=== PATIENT | female | born 1980 | race Caucasian/White ===

== ENCOUNTER → 2017-05-12 | Outpatient (CLI) | payer OTHER ==
--- NOTE | 2017-05-12 17:39 | CT ---
EXAM: CT Abdomen and Pelvis With Intravenous Contrast CLINICAL HISTORY: Reason: R10.31 Right lower quadrant pain TECHNIQUE: Axial computed tomography images of the abdomen and pelvis with intravenous contrast. CTDI is 9.76 mGy and DLP is 914.8 mGy-cm This CT exam was performed using one or more of the following dose reduction techniques: automated exposure control, adjustment of the mA and/or kV according to patient size, and/or use of iterative reconstruction technique. COMPARISON: No relevant prior studies available. FINDINGS: Lung bases are clear. Mild hepatomegaly and parenchymal steatosis. The biliary tree, pancreas, spleen, kidneys, and adrenal glands are within normal limits. There is no bowel obstruction or perforation. The appendix is unremarkable. 1.7 cm right ovarian cyst is likely functional as is trace fluid in the pelvic cul-de-sac. Small fatty umbilical hernia. No acute fracture. IMPRESSION: No acute process to explain symptoms. Normal appendix. No GI or urinary tract obstruction.
== END | disposition home or self-care (01) ==
LOC: RADCTMAIN 15:24
PROVIDERS: ATTEND Family Medicine
DX: R10.31 Right lower quadrant pain (principal)
CPT/HCPCS: 74177; Q9967

== ENCOUNTER 2023-06-04 06:10 | Day surgery (SDC) | payer OTHER ==
[~2023-06-04 06:10] MED LIST: Pre Op ABX Message 1 EACH MISC MISCELLANE ONE
[2023-06-04] MEDS ORDERED: DEXAMETHASONE SOD PHOSPHATE 4 MG/ML 1 ML VIAL IV ONE (06:45)
[2023-06-04] MEDS ORDERED: SCOPOLAMINE 1 MG/72 HR PATCH TRANSDERM ONE (06:45)
[2023-06-04] MEDS ORDERED: ONDANSETRON 4 MG/2 ML VIAL IVP ONE ×2 (06:45→09:55)
[2023-06-04] MEDS ORDERED: LACTATED RINGERS 1,000 ML IV SCH (06:45)
[2023-06-04] MEDS ORDERED: MIDAZOLAM 2 MG/2 ML VIAL IV PRN (07:00)
[2023-06-04] MEDS ORDERED: HYDROmorphone 0.5 MG/0.5 ML SYRINGE IVP PRN (07:00)
[2023-06-04] MEDS ORDERED: FAMOTIDINE 20 MG/2 ML VIAL IVP ONE (07:12)
[2023-06-04] MEDS ORDERED: MIDAZOLAM 2 MG/2 ML VIAL ONE (07:30)
[2023-06-04] MEDS ORDERED: KETOROLAC 15 MG/ML 1 ML VIAL ONE (07:30)
[2023-06-04] MEDS ORDERED: LIDOCAINE 2% INJ 20 MG/ML (2 ML VIAL) ONE (07:30)
[2023-06-04] MEDS ORDERED: fentaNYL (PF) 50 MCG/ML 2 ML AMP ONE (07:30)
[2023-06-04] MEDS ORDERED: PROPOFOL 10 MG/ML 20 ML VIAL IV ONE (07:30)
--- NOTE | 2023-06-04 08:12 | P.OP ---
Date of Procedure: 06/04/23 Preoperative Diagnosis: Dysfunctional uterine bleeding Possible endocervical polyp by ultrasound Postoperative Diagnosis: Dysfunctional uterine bleeding Possible endometrial polyps Procedure(s) Performed: Diagnostic hysteroscopy and dilation and curettage Anesthesia: MAC Surgeon: Blanquita Todd Estimated Blood Loss (ml): 25 IV fluids (ml): 350 Urine output (ml): 25 Pathology: other (Endometrial curettings) Condition: stable Disposition: PACU Indications for Procedure: Dysfunctional uterine bleeding and findings on ultrasound consistent with possible endocervical polyp Operative Findings: On hysteroscopy there was a significant amount of fluffy and polypoid appearing endometrium with no distinct individual endocervical or endometrial polyp appreciated. The bilateral tubal ostia were obscured by blood and tissue. Description of Procedure: After the patient was met in the preoperative holding area and all questions were answered, she was taken the operating room where appropriate timeout procedure was undertaken. Urine hCG was negative. On anesthetic was administered without incident and she was positioned, prepped and draped in the dorsal high lithotomy position. Exam under anesthetic was undertaken. The bladder was drained for 25 mL of clear urine. Weighted speculum was placed in the vagina. The cervix appeared patulous and RT dilated approximately 1 cm. Tenaculum was placed on the anterior lip of the cervix and the uterus was sounded to 8 cm. Dilation was not required to introduce the diagnostic hysteroscope. The hysteroscope revealed essentially uterine cavity filled with tissue on obscuring the bilateral tubal ostia. There was not a distinct polypoid lesion visualized. The hysteroscope was removed and the large banjo curette was introduced. The uterine cavity was circumferentially curettaged with a large amount of tissue obtained. The uterus was curettaged until no further tissue was obtained and the texture was rough circumferentially. This large amount of tissue was handed off as pathology specimen. The hysteroscope was reintroduced and a significant improvement in the appearance and contour of the uterus was appreciated however somewhat obscured with bleeding from the procedure itself. Final pass with the banjo curette was undertaken following removal of the hysteroscope with scant additional tissue obtained. Instruments were then removed from the cervix and it was observed. No active bleeding was noted. Tenaculum was removed. This was hemostatic as well. All instruments removed from the vagina. All counts were correct. The patient was awoken from anesthetic without incident and transported to recovery area.
[2023-06-04 08:18] VITALS: TEMP 97
[2023-06-04 09:16] VITALS: RESP 16
[2023-06-04 09:45] VITALS: BP 125/71; PULSE 64
[2023-06-04] MEDS ORDERED: ONDANSETRON 4 MG/2 ML VIAL ONE (09:56)
== END 2023-06-04 10:26 | disposition home or self-care (01) ==
LOC: OR 06:10
PROVIDERS: ATTEND Obstetrics & Gynecology
DX: N93.8 Other specified abnormal uterine and vaginal bleeding (principal); N84.1 Polyp of cervix uteri; E03.9 Hypothyroidism, unspecified; Z90.89 Acquired absence of other organs; Z98.890 Other specified postprocedural states; Z79.899 Other long term (current) drug therapy; Z98.891 History of uterine scar from previous surgery
CPT/HCPCS: 81025; 58558; J2250; J1100; J2405; J3010; J3490; J1885; J2704; J1170; J2001; 88305

== ENCOUNTER 2024-02-19 08:18 | Day surgery (SDC) | payer OTHER ==
--- NOTE | 2024-02-19 06:43 | P.GSHP ---
History of Present Illness H&P Date: 02/19/24 CHIEF COMPLAINT: Cholecystitis HISTORY OF PRESENT ILLNESS: The patient is a 43-year-old female who presents with history of epigastric including right upper quadrant abdominal pain. She underwent diagnostic studies for her gallbladder. Separately her clinical picture was consistent with cholecystitis. Now she presents for surgical intervention. PAST MEDICAL HISTORY: Please see list PAST SURGICAL HISTORY: Please see list MEDICATIONS: Please see list ALLERGIES: Please see list SOCIAL HISTORY: Please see list FAMILY HISTORY: Please see list REVIEW OF ORGAN SYSTEMS: CONSTITUTIONAL: No reports of fevers or chills. HEENT: Denies any troubles with the vision or hearing. ENDOCRINE: No reports of hypothyroidism. No diabetes. RESPIRATORY: No recent pneumonias. CARDIOVASCULAR: Denies chest pain or palpitations GI: No blood in stools or constipation. MUSCULOSKELETAL: Has occasional joint pain including back pain. NEURO: No seizure disorders or headaches. No recent stroke. PSYCH: No depression or suicidal ideation. GENITOURINARY: No active blood in urine. No urinary hesitancy. HEMATOLOGIC: No personal or family history of DVTs or pulmonary emboli. SKIN: No skin cancer. PHYSICAL EXAM: VITAL SIGNS: Afebrile vital signs stable GENERAL: Well-developed pleasant in no acute distress. HEENT: No scleral icterus. Extraocular movements grossly intact. Moist buccal mucosa. NECK: Supple without lymphadenopathy. CHEST: Unlabored respirations. Equal bilateral excursions. CARDIOVASCULAR: Regular rate regular rhythm rhythm. Distal 2+ pulses. ABDOMEN: Soft, nondistended. Tender along the epigastrium and right upper quadrant. MUSCULOSKELETAL: No clubbing, cyanosis, or edema. NEURO: Cranial nerves II to XII within normal limits. No focal or lateralizing signs. PSYCH: Alert and oriented to person, place and time. SKIN: Well-perfused good skin turgor. ASSESSMENT: 1. Epigastric and right upper quadrant abdominal pain 2. Chronic cholecystitis 3. Symptomatic gallstones. PLAN: 1. Will need a robotic cholecystectomy possible open. Benefits and risks were described. 2. Heparin for DVT prophylaxis 5000 units. 3. Antibiotic prophylaxis. 4. CBC and CMP on day of procedure 5. Non-narcotic pre and post op pain management reviewed. 6. Indocyanine green for biliary imaging. Past Medical History Past Medical History: Cancer, GERD/Reflux, Rheumatoid Arthritis (RA), Thyroid Disorder Additional Past Medical History / Comment(s): mitral valve prolapse, pre menopause tx. hx uterine cancer initial stages, History of Any Multi-Drug Resistant Organisms: None Reported Past Surgical History: Breast Surgery, Hysterectomy, Tonsillectomy Additional Past Surgical History / Comment(s): breast implants, D&C Hysterscopy Past Anesthesia/Blood Transfusion Reactions: No Reported Reaction Smoking Status: Never smoker - Past Family History Father Additional Family Medical History / Comment(s): enlarged heart, Medications and Allergies Home Medications Medication Instructions Recorded Confirmed Type Thyroid,Pork [Modeling Agent Thyroid] 90 mg PO DAILY 06/04/23 02/17/24 History Ibuprofen [Advil] 200 mg PO DIRECTED PRN 02/17/24 02/17/24 History Progesterone, Micronized 200 mg PO HS 02/17/24 02/17/24 History [Progesterone] Unk Estrogen And Progesterone 1 applic ID [id number] 02/17/24 02/17/24 History Allergies Allergy/AdvReac Type Severity Reaction Status Date / Time No Known Allergies Allergy Verified 02/17/24 17:11
[~2024-02-19 08:18] MED LIST changes: +INDOCYANINE GREEN 25 MG VIAL IV STA; -Pre Op ABX Message 1 EACH MISC MISCELLANE ONE
[2024-02-19] MEDS: ONDANSETRON 4 MG/2 ML VIAL IVP PRN (09:04)
[2024-02-19] MEDS: ACETAMINOPHEN TAB 500 MG TAB PO PRN (09:04)
[2024-02-19] MEDS: DEXAMETHASONE SOD PHOSPHATE 4 MG/ML 1 ML VIAL IV ONE (09:05)
[2024-02-19] MEDS: HEPARIN SODIUM,PORCINE 5,000 UNIT/ML 1 ML VIAL SQ PRN (09:06)
[2024-02-19] MEDS: SCOPOLAMINE 1 MG/72 HR PATCH TRANSDERM STA (09:07)
[2024-02-19 09:19] LABS: Basophils % (A) 0 %; Eosinophils # (A) 0.2 k/uL (0-0.7); Eosinophils % (A) 3 %; HCT 42.4 % (34.0-46.0); HGB 14.1 gm/dL (11.4-16.0); Lymphocytes # (A) 1.9 k/uL (1.0-4.8); Lymphocytes % (A) 23 %; MCH 29.6 pg (25.0-35.0); MCHC 33.3 g/dL (31.0-37.0); MCV 88.8 fL (80.0-100.0); Mean Platelet Volume 7.7; Monocytes # (A) 0.3 k/uL (0-1.0); Monocytes % (A) 4 %; Neutrophils # (A) 5.7 k/uL (1.3-7.7); Neutrophils % (A) 69 %; Platelet Count 315 k/uL (150-450); RBC 4.77 m/uL (3.80-5.40); RDW 14.4 % (11.5-15.5); WBC 8.2 k/uL (3.8-10.6)
[2024-02-19] MEDS: LACTATED RINGERS 1,000 ML IV SCH (09:19)
[2024-02-19 09:36] LABS: ALT 24 U/L (4-34); AST 22 U/L (14-36); African American GFR (CKD) >90 (>60 ml/min/1.73 sqM); Albumin 4.6 g/dL (3.5-5.0); Alkaline Phosphatase 83 U/L (38-126); Anion Gap 7 mmol/L; Blood Urea Nitrogen 14 mg/dL (7-17); Calcium 9.3 mg/dL (8.4-10.2); Carbon Dioxide 24 mmol/L (22-30); Chloride 108 mmol/L (98-107); Glucose 94 mg/dL (74-99); Non-African American GFR(CKD) >90 (>60 ml/min/1.73 sqM); Potassium 4.3 mmol/L (3.5-5.1); Sodium 139 mmol/L (137-145); Total Bilirubin 0.6 mg/dL (0.2-1.3); Total Protein 7.4 g/dL (6.3-8.2)
[2024-02-19] MEDS ORDERED: PROPOFOL 10 MG/ML 20 ML VIAL IV ONE (09:48)
[2024-02-19] MEDS ORDERED: NEOSTIGMINE 1 MG/ML 10 ML VIAL ONE (09:48)
[2024-02-19] MEDS ORDERED: MIDAZOLAM 2 MG/2 ML VIAL ONE (09:48)
[2024-02-19] MEDS ORDERED: GLYCOPYRROLATE 0.2 MG/ML 2 ML VIAL ONE (09:48)
[2024-02-19] MEDS ORDERED: LIDOCAINE 1% INJ 10MG/ML (20 ML MDV) ONE (09:48)
[2024-02-19] MEDS ORDERED: SUGAMMADEX SODIUM 200 MG/2 ML SDV IV ONE (09:48)
[2024-02-19] MEDS ORDERED: PHENYLEPHRINE 10 MG/ML VIAL ONE (09:48)
[2024-02-19] MEDS ORDERED: SUCCINYLCHOLINE CHLORIDE 200 MG/10 ML VIAL IV ONE (09:48)
[2024-02-19] MEDS ORDERED: ePHEDrine 50 MG/ML 1 ML VIAL ONE (09:48)
[2024-02-19] MEDS ORDERED: fentaNYL (PF) 50 MCG/ML 2 ML AMP ONE (09:48)
[2024-02-19] MEDS ORDERED: ROCURONIUM 10 MG/ML (5 ML VIAL) IV ONE (09:48)
[2024-02-19] MEDS: LIDOCAINE 1%-EPI 1:100,000 20 ML VIAL SQ ONE (09:52)
[2024-02-19] MEDS: LACTATED RINGERS 1,000 ML IV ONE (10:32)
[2024-02-19 11:29] VITALS: TEMP 97.1
--- NOTE | 2024-02-19 11:41 | P.OP ---
Date of Procedure: 02/19/24 Description of Procedure: SURGEON: RERE KING MD PREOPERATIVE DIAGNOSES: 1. Chronic cholecystitis 2. Right upper quadrant abdominal pain 3. Symptomatic gallstones 4. Hypothyroidism 5. Gastroesophageal reflux disease 6. Rheumatoid arthritis 7. Mitral valve prolapse 8. History of uterine cancer status post hysterectomy POSTOPERATIVE DIAGNOSES: 1. Chronic cholecystitis with gallstones 2. Right upper quadrant abdominal pain 3. Symptomatic gallstones 4. Hypothyroidism 5. Gastroesophageal reflux disease 6. Rheumatoid arthritis 7. Mitral valve prolapse 8. History of uterine cancer status post hysterectomy OPERATION: Robotic-assisted da Beth Xi laparoscopic cholecystectomy, multiport with FIREFLY ESTIMATED BLOOD LOSS: 5 mL. SPECIMENS REMOVED: Gallbladder. COMPLICATIONS: None. OPERATIVE FINDINGS: 1. Mild hepatomegaly with dome down technique performed INDICATIONS: The patient is a 43-year-old female who presents with symptomatic gallstones. Robotic assisted laparoscopic approach was described. Benefits and risks of the procedure including but not limited to bleeding, infection, injury to the biliary tree was described. Informed consent was obtained. DESCRIPTION OF PROCEDURE: Patient was brought to the operating room, placed in supine position. After general induction, the abdomen had been prepped and draped in standard sterile fashion. The robotic da Beth XI system was primed. After a timeout protocol was performed, the patient had been prepped and draped in standard sterile fashion. The patient was injected with indocyanine green. A 5 mm 0 degrees laparoscopic trocar entry was performed along the left upper quadrant. The abdomen insufflated to 15 mmHg pressure which was tolerated well. Diagnostic laparoscopy demonstrated no injury to bowel viscera or mesentery. The liver surface was unremarkable. Next, two 8 mm robotic ports were placed along the right upper abdomen. The camera 8-mm port was maintained along the epigastrium. Another 8 mm port was placed along the left upper abdominal wall after exchanging the 5 mm port. Please note that the ports were placed at least 10 to 15 cm away from the target anatomy of the gallbladder. The robot was docked along the left lateral abdomen. The patient was repositioned in reverse Trendelenburg position. Using a grasper for arm 3, a grasper for arm 4, including hook cautery for arm 1, the robotic system was docked and primed as described. Instruments were interchanged by the hospital medical assistant including hook cautery, Bovie cautery and clip appliers. I had sat at the console. Next attention was brought to the infundibulum and cystic structures. Dome down technique was performed starting from the fundus towards the infundibulum with dissection of the gallbladder from the hepatic fossa. The infundibulum and cystic duct were dissected free from surrounding tissues. The cystic duct was isolated. FIREFLY was used to identify the cystic artery and cystic structures. A critical view of safety was obtained. Large PLASTIC clips were used throughout the entire case. Using a clip ordnance engineer, 2 clips were placed at the junction of the infundibulum and cystic duct. The cystic duct was divided between clips. Next, the cystic artery was similarly clipped and cauterized. Electro-Bovie cautery was used to remove the gallbladder from the hepatic fossa. Hemostasis was checked and found to be adequate. The robot was undocked. I re-scrubbed into the case. Using a 10 mm Endo Catch bag via the left upper quadrant incision, the specimen was removed from the abdominal cavity. All pneumoperitoneum instruments were evacuated from the abdominal cavity. The incisions were reapproximated using 4-0 Monocryl in an interrupted subcuticular fashion. Fascial defects were less than 8 mm in size. Please note along the trocar sites, local anesthetic was placed as a field block prior to insertion of all instruments. Liquid glue was applied to the skin. At the end of the procedure needle, sponge, and instrument count had been verified correct by the surgical sales representative. The patient was transferred to postanesthesia care unit in stable condition. Intraoperative films were shared with the patient's family. Plan - Discharge Summary Discharge Rx Participant: No New Discharge Prescriptions: New Ibuprofen [Motrin] 600 mg PO Q8HR PRN #30 tab PRN Reason: Pain Simethicone [Gas-X] 125 mg PO AC-TID PRN #20 capsule PRN Reason: Pain Acetaminophen Tab [Tylenol Tab] 1,000 mg PO Q6HR PRN #30 tablet PRN Reason: Pain Continue Progesterone, Micronized [Progesterone] 200 mg PO HS Unk Estrogen And Progesterone 1 applic ID [id number] Thyroid,Pork [Travel Registered Nurse Pacu Thyroid] 90 mg PO DAILY Discontinued Ibuprofen [Advil] 200 mg PO DIRECTED PRN PRN Reason: Pain Discharge Medication List Thyroid,Pork [Travel Registered Nurse Pacu Thyroid] 90 mg PO DAILY 06/04/23 [History] Progesterone, Micronized [Progesterone] 200 mg PO HS 02/17/24 [History] Unk Estrogen And Progesterone 1 applic ID [id number] 02/17/24 [History] Acetaminophen Tab [Tylenol Tab] 1,000 mg PO Q6HR PRN #30 tablet 02/19/24 [Rx] Ibuprofen [Motrin] 600 mg PO Q8HR PRN #30 tab 02/19/24 [Rx] Simethicone [Gas-X] 125 mg PO AC-TID PRN #20 capsule 02/19/24 [Rx] Follow up Appointment(s)/Referral(s): Rere King MD [STAFF PHYSICIAN] - 02/23/24 6:55 pm Patient Instructions/Handouts: *Surgery [facility] - (Anesthesia) Discharge Instructions Outpatient Surgery, Low Fat Diet (DC), Laparoscopic Cholecystectomy (DC) Activity/Diet/Wound Care/Special Instructions: TELEHEALTH - DR WILL CALL YOU BETWEEN 9 am to 8 pm Recommend low-fat diet for the next 2 days. No lifting over 10 pounds in 2 weeks until March 04February shower. No bath tub soaks for two weeks until March 04 Use Tylenol, simethicone and ibuprofen or Aleve scheduled for the next 24-48 hours for best pain relief. Use ice along incisions for today to prevent swelling. Discharge Disposition: HOME SELF-CARE
[2024-02-19] MEDS: HYDROmorphone 0.5 MG/0.5 ML SYRINGE IVP PRN (11:44)
[2024-02-19] MEDS: ONDANSETRON 4 MG/2 ML VIAL IVP ONE (13:17)
[2024-02-19 14:21] VITALS: BP 131/80; PULSE 81; RESP 18
== END 2024-02-19 13:38 | disposition home or self-care (01) ==
LOC: OR 08:18
PROVIDERS: ATTEND Surgery Plastic and Reconstructive Surgery
DX: K80.10 Calculus of gallbladder with chronic cholecystitis without obstruction (principal); E03.9 Hypothyroidism, unspecified; I34.1 Nonrheumatic mitral (valve) prolapse; K21.9 Gastro-esophageal reflux disease without esophagitis; M06.9 Rheumatoid arthritis, unspecified; Z79.890 Hormone replacement therapy; Z85.42 Personal history of malignant neoplasm of other parts of uterus; Z90.710 Acquired absence of both cervix and uterus; Z79.899 Other long term (current) drug therapy
CPT/HCPCS: 47562; S2900; 80053; 85025; 88304